=== PATIENT | male | born 1945 | race Caucasian/White ===

== ENCOUNTER → 2019-06-26 08:40 | Outpatient (BNVA) | payer OTHER, SELFPAY | PROVIDERS: PCP Specialist; Visit Provider Nurse Practitioner | DX: R41.3 Other amnesia (principal); F17.210 Nicotine dependence, cigarettes, uncomplicated | CPT/HCPCS: 96116; 99213; 99999 ==

== ENCOUNTER 2019-07-31 10:56 | Outpatient (CLI) | payer OTHER, SELFPAY ==
--- NOTE | 2019-07-31 10:15 | USCV_ITS ---
LovelaceDebbie walker Age: 73 Gender: M : 1945 Exam Date: 07/31/2019 11:35 Ordering Phys: Zachary Baron MSN AGACNP-BC Technologist: Heaven Dee Exam Location: [facility] – [place] Indication: Histor of CVA Risk Factors: Smoker Previous Vascular Surgery: None Right Brachial BP: / Left Brachial BP: / Right Left Velocity (cm/s) Spectral Plaque Velocity (cm/s) Spectral Plaque Syst/Diast Broadening Syst/Diast Broadening 55.90/ 5.90 Prox CCA 103.40/ 8.50 61.10/ 8.50 Hetro Mid CCA 82.90 / 7.70 Hetro 71.80/ 10.30 Hetro Distal CCA 62.40 / 7.70 Hetro 125.80/23.30 Hetro Prox ICA 90.20 / 15.50 Hetro 181.00/26.10 Hetro Mid ICA 156.80/ 24.10 Hetro 128.70/24.10 Distal ICA 138.70/ 22.10 94.70 Hetro ECA 153.80 Hetro 2.52 ICA/CCA 2.51 Antegrade Vertebral Antegrade 38.80/ 5.40 cm/s 108.6/ 16.10 cm/s 0 Bi Subclavian 121.2 89.40 0 FINDINGS Comparison: none available. Large amount of calcified plaque at the bifurcations with turbulence. Moderate elevation of velocities and ratios. CONCLUSIONS Left ICA stenosis 50-69%. Left ICA stenosis 50-69%. Large amount of plaque at the carotid bifurcations. Dr. Mira Lawrence DO (Electronically Signed) Final Date: 31 July 2019 14:19 S
--- NOTE | 2019-07-31 11:00 | USCV_ITS ---
Debbie Lovelace Age: 73 Gender: M : 1945 Exam Date: 07/31/2019 11:14 Ordering Phys: Zachary Baron MSN AGACNP-BC Technologist: Heaven Dee Exam Location: [facility] – [place] Indication: CVA BP: 105 / 80 HR: 65 Rhythm: Sinus Technical Quality: Suboptimal MEASUREMENTS (Male / Female) Normal Values 2D ECHO LV Diastolic Diameter PLAX 5.1 cm 4.2 - 5.9 / 3.9 - 5.3 cm LV Systolic Diameter PLAX 4.3 cm LV Chamber Size 4.5 cm IVS Diastolic Thickness 0.9 cm 0.6 - 1.0 / 0.6 - 0.9 cm IVS Systolic Thickness 1.4 cm LVPW Diastolic Thickness 0.9 cm 0.6 - 1.0 / 0.6 - 0.9 cm LVPW Systolic Thickness 1.3 cm RV Chamber Size 2.1 cm LVOT Diameter 2.2 cm LV Ejection Fraction 2D Teich 34.5 % LA Diameter 3.0 cm LA Width 3.5 cm LA Height 4.5 cm RA Width 2.8 cm RA Height 4.1 cm Aorta at Sinotubular Diameter 2.8 cm M-MODE LV Diastolic Diameter MM 6.5 cm 4.2 - 5.9 / 3.9 - 5.3 cm LV Systolic Diameter MM 5.8 cm LV Ejection Fraction MM Teich 22.7 % IVS Diastolic Thickness MM 1.4 cm 0.6 - 1.0 / 0.6 - 0.9 cm IVS Systolic Thickness MM 1.6 cm LVPW Diastolic Thickness MM 1.1 cm 0.6 - 1.0 / 0.6 - 0.9 cm LVPW Systolic Thickness MM 1.3 cm Aortic Annulus Diameter 3.1 cm LA Ao Ratio MM 1.0 MV E Point Septal Separation 2.1 cm DOPPLER AV Peak Velocity 107.0 cm/s LVOT Peak Velocity 93.0 cm/s AV Area Cont Eq vti 2.8 cm squared AV Area Cont Eq pk 3.2 cm squared MV Area PHT 3.9 cm squared Mitral E to A Ratio 1.0 MV E' Velocity 7.0 cm/s Mitral E to MV E' Ratio 14.3 Mitral E to LV E' Lateral Ratio 12.0 Mitral E to LV E' Septal Ratio 18.0 TV Peak E Velocity 49.0 cm/s Right Atrial Pressure 3.0 mmHg PV Peak Velocity 83.0 cm/s RV Acceleration Time 0.2 s RV Ejection Time 0.3 s RV AcT/ET 0.5 FINDINGS Left Ventricle Moderately increased left ventricular cavity size. Severely decreased left ventricular systolic function. Left ventricular ejection fraction is estimated at 22 %. Global left ventricular hypokinesis. Calcified subvalvular apparatus noted in the left ventricle.Grade I/IV diastolic dysfunction (abnormal relaxation filling pattern), normal to mildly elevated filling pressures. Right Ventricle The right ventricle is normal in size and function. RVSP could not be calculated due to incomplete tricuspid regurgitation velocity profile. Right Atrium The right atrium is normal in size. Left Atrium The left atrium is normal in size. Mitral Valve Moderately thickened mitral valve. No mitral valve stenosis. Mild mitral valve regurgitation. Aortic Valve Moderate aortic valve calcification. No aortic valve stenosis. Trace aortic valve regurgitation. Tricuspid Valve Structurally normal tricuspid valve without significant stenosis or regurgitation. Pulmonary artery systolic pressure is normal. Pulmonic Valve Structurally normal pulmonic valve without significant stenosis. There is no pulmonic regurgitation. Pericardium Normal pericardium without effusion. Aorta Normal ascending aorta dimension. CONCLUSIONS 1-Moderately increased left ventricular cavity size. Severely decreased left ventricular systolic function. Left ventricular ejection fraction is estimated at 22 %. Global left ventricular hypokinesis. Calcified subvalvular apparatus noted in the left ventricle.Grade I/IV diastolic dysfunction (abnormal relaxation filling pattern), normal to mildly elevated filling pressures. 2-The right ventricle is normal in size and function. RVSP could not be calculated due to incomplete tricuspid regurgitation velocity profile. 3-Moderate aortic valve calcification. No aortic valve stenosis. Trace aortic valve regurgitation. 4-Moderately thickened mitral valve. No mitral valve stenosis. Mild mitral valve regurgitation. 5-There is no pericardial effusion. 6-Right atrial pressure is around 10 mm of mercury. 7-There are no prior echocardiogram studies to compare. Zeeshan Noble MD (Electronically Signed) Final Date: 31 July 2019 21:06 S
== END 2019-07-31 10:57 | disposition home or self-care (01) ==
LOC: RAD 10:57
PROVIDERS: PCP Family Medicine; Visit Provider Nurse Practitioner
DX: I63.9 Cerebral infarction, unspecified (principal); I08.0 Rheumatic disorders of both mitral and aortic valves
CPT/HCPCS: 93306; 93880

== ENCOUNTER → 2019-09-16 09:22 | Outpatient (BNVA) | payer OTHER, SELFPAY | PROVIDERS: PCP Family Medicine; Visit Provider Internal Medicine Cardiovascular Disease | DX: I11.0 Hypertensive heart disease with heart failure (principal); I50.42 Chronic combined systolic (congestive) and diastolic (congestive) heart failure; E78.2 Mixed hyperlipidemia; I65.23 Occlusion and stenosis of bilateral carotid arteries; E11.9 Type 2 diabetes mellitus without complications; E03.9 Hypothyroidism, unspecified | CPT/HCPCS: 80048; 83735; 83880 ==

== ENCOUNTER 2020-01-06 10:06 | Outpatient (CLI) | payer OTHER, SELFPAY ==
--- NOTE | 2020-01-06 10:15 | USCV_ITS ---
Debbie Lovelace Age: 74 Gender: M : 1945 Exam Date: 01/06/2020 10:31 Ordering Phys: Ann Dave MD [email or web address]) Technologist: Dionte Bueno Exam Location: [facility] [place] Indication: CHF BP: / HR: 63 Rhythm: Sinus Technical Quality: Good MEASUREMENTS (Male / Female) Normal Values 2D ECHO LV Diastolic Diameter PLAX 6.0 cm 4.2 - 5.9 / 3.9 - 5.3 cm LV Systolic Diameter PLAX 5.1 cm IVS Diastolic Thickness 0.8 cm 0.6 - 1.0 / 0.6 - 0.9 cm IVS Systolic Thickness 1.0 cm LVPW Diastolic Thickness 1.2 cm 0.6 - 1.0 / 0.6 - 0.9 cm LVPW Systolic Thickness 1.2 cm LVOT Diameter 2.1 cm LV Ejection Fraction 2D Teich 30.5 % LV Ejection Fraction MOD 2C 37.1 % LV Ejection Fraction 2C AL 40.5 % LA Diameter 3.5 cm LA Width 4.5 cm LA Height 4.8 cm RA Width 3.4 cm RA Height 5.2 cm Aorta at Sinotubular Diameter 2.9 cm M-MODE LV Diastolic Diameter MM 6.0 cm 4.2 - 5.9 / 3.9 - 5.3 cm LV Systolic Diameter MM 5.1 cm LV Ejection Fraction MM Teich 31.0 % IVS Diastolic Thickness MM 0.9 cm 0.6 - 1.0 / 0.6 - 0.9 cm IVS Systolic Thickness MM 1.2 cm LVPW Diastolic Thickness MM 1.2 cm 0.6 - 1.0 / 0.6 - 0.9 cm LVPW Systolic Thickness MM 1.9 cm RV Diastolic Diameter MM 1.5 cm Aortic Annulus Diameter 3.4 cm LA Ao Ratio MM 1.0 MV E Point Septal Separation 1.3 cm FINDINGS Left Ventricle Mildly increased left ventricular cavity size. Normal left ventricular wall thickness. Moderately decreased left ventricular systolic function. Left ventricular ejection fraction is estimated at 35-40 %. Global left ventricular hypokinesis. Right Ventricle Normal right ventricular size and systolic function. Right Atrium Normal right atrial size. Left Atrium Normal left atrial size. Mitral Valve Mildly thickened mitral valve. Aortic Valve Thickened trileaflet aortic valve. Tricuspid Valve Structurally normal tricuspid valve. Pulmonic Valve Pulmonic valve not well visualized. Pericardium No pericardial effusion. Aorta Normal sized aortic root. CONCLUSIONS 1. This is a limited echocardiogram. 2. Mildly increased left ventricular cavity size. Moderately decreased left ventricular systolic function. Left ventricular ejection fraction is estimated at 35-40 %. Global left ventricular hypokinesis. 3. When compared to previous study dated 07/31/19, left ventricular systolic function has improved. Ann Dave MD (Electronically Signed) Final Date: 06 January 2020 21:40 S
== END 2020-01-06 10:07 | disposition home or self-care (01) ==
PROVIDERS: PCP Family Medicine; Visit Provider Internal Medicine Cardiovascular Disease
DX: I50.9 Heart failure, unspecified (principal)
CPT/HCPCS: 93308